=== PATIENT | female | born 1975 | race Caucasian/White ===

== ENCOUNTER 2018-04-02 09:16 | Inpatient (IN) | payer MEDICAID ==
[2018-04-02] MEDS ORDERED: AMPICILLIN 2 GM/NS (PMX) 100 ML IV (10:00)
[2018-04-02] MEDS ORDERED: BUTORPHANOL 2 MG INJ IV (10:00)
[2018-04-02] MEDS ORDERED: CARBOPROST 250 MCG INJ IM (10:00)
[2018-04-02] MEDS ORDERED: LIDOCAINE 1% (MPF) 30 ML INJ INJ (10:00)
[2018-04-02] MEDS ORDERED: METHYLERGONOVINE 0.2 MG INJ IM (10:00)
[2018-04-02] MEDS ORDERED: OXYTOCIN 30 UNITS/LR 500 ML IV ×2 (10:00)
[2018-04-02] MEDS ORDERED: MISOPROSTOL 200 MCG TAB PR (10:00)
[2018-04-02] MEDS: LACTATED RINGER'S 1,000 ML IV ×3 (10:29→23:47)
[2018-04-02 10:38] LABS: ADD MAN DIFF? NO
[2018-04-02 10:45] LABS: BASOPHIL # 0.1 10^3/ul (0.0-0.1); BASOPHILS % 0.6 % (0.0-2.0); EOSINOPHILS # 0.1 10^3/ul (0.0-0.5); EOSINOPHILS % 1.5 % (0.0-7.0); HEMATOCRIT 37.3 % (37.0-47.0); HEMOGLOBIN 12.6 g/dl (12.0-16.0); LYMPHOCYTES # 1.7 10^3/ul (0.8-2.9); LYMPHOCYTES % 19.8 % (15.0-51.0); MEAN CORPUSCULAR HEMOGLOBIN 31.5 pg (29.0-33.0); MEAN CORPUSCULAR HGB CONC 33.8 g/dl (32.0-37.0); MEAN CORPUSCULAR VOLUME 93.3 fl (82.0-101.0); MEAN PLATELET VOLUME 11.1 fl (7.4-10.4); MONOCYTE # 0.5 10^3/ul (0.3-0.9); MONOCYTES % 6.1 % (0.0-11.0); NEUTROPHIL # 6.2 10^3/ul (1.6-7.5); NEUTROPHILS % 71.1 % (39.0-77.0); PLATELET COUNT 185 10^3/UL (140-415); RED CELL DISTRIBUTION WIDTH 12.2 % (11.5-14.5)
[2018-04-02 10:45] LABS: WHITE BLOOD COUNT 8.7 10^3/ul (4.8-10.8)
[2018-04-02 11:05] LABS: INR 0.82; PARTIAL THROMBOPLASTIN TIME 23.5 Sec (23.0-35.0); PROTIME 11.4 Sec (11.9-14.9); PT RATIO 0.9
[2018-04-02 11:39] LABS: HEPATITIS B SURFACE ANTIGEN NEGATIVE (NEGATIVE)
[2018-04-02 11:41] LABS: GLUCOSE 108 mg/dl (70-220)
[2018-04-02] MEDS ORDERED: AMPICILLIN 1 GM/NS (PMX) 50 ML IV (14:00)
[2018-04-02] MEDS ORDERED: DEXTROSE 5%-LR 1,000 ML IV (14:00)
[2018-04-02 18:46] LABS: RAPID PLASMA REAGIN NONREACTIVE (NR)
[2018-04-02] MEDS ORDERED: AMPICILLIN 2 GM/NS (PMX) 100 ML (22:46)
[2018-04-02] MEDS ORDERED: AMPICILLIN 2 GM/NS (PMX) 100 ML IVPB (23:00)
[2018-04-02] MEDS ORDERED: FENTAnyl 2MCG/ML-ROPIV 0.2% 100 ML (23:39)
[2018-04-03] MEDS ORDERED: DIPHENHYDRAMINE 50 MG INJ IV (00:30)
[2018-04-03] MEDS ORDERED: FENTAnyl 2MCG/ML-ROPIV 0.2% 100 ML BAG EPI (00:30)
[2018-04-03] MEDS ORDERED: ONDANSETRON 4 MG INJ IV (00:30)
[2018-04-03] MEDS ORDERED: NALOXONE (0.4 MG/ML) INJ IV (00:30)
[2018-04-03] MEDS: OXYTOCIN 30 UNITS/LR 500 ML IV ×2 (00:30→05:17)
[2018-04-03] MEDS: AMPICILLIN 1 GM/NS (PMX) 50 ML IVPB (02:34)
[2018-04-03] MEDS ORDERED: LACTATED RINGER'S 1,000 ML IV* (04:27)
[2018-04-03] MEDS ORDERED: METHYLERGONOVINE 0.2 MG INJ IM (04:30)
[2018-04-03] MEDS ORDERED: OXYTOCIN 30 UNITS/LR 500 ML IV (04:30)
[2018-04-03] MEDS ORDERED: HYDROCODONE/APAP (5/325) TAB PO (04:30)
[2018-04-03] MEDS ORDERED: CARBOPROST 250 MCG INJ IM (04:30)
[2018-04-03] MEDS ORDERED: LANOLIN HPA 1 PKT TOP (04:30)
[2018-04-03] MEDS ORDERED: MISOPROSTOL 200 MCG TAB PR (04:30)
[2018-04-03] MEDS: IBUPROFEN 600 MG TAB PO ×4 (06:13→23:33)
[2018-04-03] MEDS: ACCU-CHEK XX ×3 (12:00→20:05)
[2018-04-04] MEDS: IBUPROFEN 600 MG TAB PO ×4 (05:28→23:36)
[2018-04-04] MEDS: ACCU-CHEK XX ×4 (07:30→20:05)
[2018-04-04 08:38] LABS: ADD MAN DIFF? NO
[2018-04-04 08:46] LABS: BASOPHIL # 0.1 10^3/ul (0.0-0.1); BASOPHILS % 0.6 % (0.0-2.0); EOSINOPHILS # 0.2 10^3/ul (0.0-0.5); EOSINOPHILS % 2.2 % (0.0-7.0); HEMOGLOBIN 10.9 g/dl (12.0-16.0); LYMPHOCYTES # 2.2 10^3/ul (0.8-2.9); MEAN CORPUSCULAR HEMOGLOBIN 31.3 pg (29.0-33.0); MEAN CORPUSCULAR VOLUME 94.8 fl (82.0-101.0); MEAN PLATELET VOLUME 11.1 fl (7.4-10.4); MONOCYTE # 0.6 10^3/ul (0.3-0.9); MONOCYTES % 7.2 % (0.0-11.0); NEUTROPHIL # 5.6 10^3/ul (1.6-7.5); NEUTROPHILS % 63.9 % (39.0-77.0); PLATELET COUNT 159 10^3/UL (140-415); RED BLOOD COUNT 3.48 10^6/ul (4.20-5.40); RED CELL DISTRIBUTION WIDTH 12.6 % (11.5-14.5)
[2018-04-04 08:46] LABS: WHITE BLOOD COUNT 8.8 10^3/ul (4.8-10.8)
[2018-04-05] MEDS: IBUPROFEN 600 MG TAB PO ×2 (05:31→11:48)
[2018-04-05] MEDS: DIPHTH/TET/ACEL PERTUSS (ADULT) 0.5 ML VIAL IM* (09:20)
[2018-04-05] MEDS: ACCU-CHEK XX (11:47)
== END 2018-04-05 12:14 | disposition home or self-care (01) | DRG 807 ==
LOC: OBT 09:16 → L-D 09:17 → PP1 04-03 06:00 → OBT 09:45 → L-D 09:45
PROVIDERS: Obstetrics & Gynecology
PROC: 10E0XZZ Delivery of Products of Conception, External Approach (ICD-10-PCS; principal; 2018-04-02)
DX: O80 Encounter for full-term uncomplicated delivery (principal); Z37.0 Single live birth; Z3A.37 37 weeks gestation of pregnancy
CPT/HCPCS: 62319; 82947; 82962; 85025; 85610; 85730; 86592; 86850; 86900; 86901; 87340